=== PATIENT | female | born 2000 | race African-American/Black ===

== ENCOUNTER 2021-05-05 17:14 | Emergency (ER) | payer MEDICAID ==
[~2021-05-05] VITALS: Ht 160 cm; Wt 134.0 kg
[2021-05-05] MEDS ORDERED: IBUP-2029 MT (20:29)
[2021-05-05 20:47] VITALS: BP 157/80
== END 2021-05-05 20:41 | disposition home or self-care (01) ==
LOC: ER 17:14
DX: S86.811A Strain of other muscle(s) and tendon(s) at lower leg level, right leg, initial encounter (principal); I10 Essential (primary) hypertension; E78.00 Pure hypercholesterolemia, unspecified; Z98.890 Other specified postprocedural states; W22.8XXA Striking against or struck by other objects, initial encounter; Y93.89 Activity, other specified; Y92.89 Other specified places as the place of occurrence of the external cause; Y99.8 Other external cause status
CPT/HCPCS: 73560; 99283